=== PATIENT | female | born 1980 | race Caucasian/White ===

== ENCOUNTER 2019-03-12 12:03 | Emergency (ER) | payer MEDICAID ==
[~2019-03-12] VITALS: Ht 165.1 cm; Wt 91.0 kg
[~2019-03-12 12:03] MED LIST: FAMO-96 PO; NAPR-985 PO
[2019-03-12 12:06] VITALS: BP 150/75; PULSE 102; RESP 16; Ht 165.1 cm; Wt 91.0 kg
== END 2019-03-12 15:06 | disposition home or self-care (01) ==
LOC: FTE 12:03
DX: K80.20 Calculus of gallbladder without cholecystitis without obstruction (principal); R10.2 Pelvic and perineal pain
CPT/HCPCS: 36415; 76705; 76830; 76856; 80053; 81003; 81025; 83690; 85025; Z7502; 99283